=== PATIENT | female | born 1985 | race Two or more races ===

== ENCOUNTER 2023-06-05 15:32 | Emergency (ER) | payer MEDICAID ==
[~2023-06-05] VITALS: Ht 167.6 cm; Wt 105.8 kg
[2023-06-05 15:52] VITALS: BP 172/100; PULSE 91; TEMP 98; O2SAT 99
[2023-06-05 17:19] VITALS: RESP 16
== END 2023-06-05 18:09 | disposition home or self-care (01) ==
LOC: ER 15:33
DX: M54.12 Radiculopathy, cervical region (principal); M54.2 Cervicalgia; R20.0 Anesthesia of skin
CPT/HCPCS: 99282